=== PATIENT | male | born 1960 ===

== ENCOUNTER 2025-03-10 08:02 | Emergency (ER) | payer BC, SELFPAY ==
[2025-03-10 08:06] VITALS: BP 166/94
--- NOTE | 2025-03-10 08:19 | ED.GENMED ---
History of Present Illness
General
Chief Complaint: Musculo-Skeletal Complaint
Time Seen by Provider: 03/10/25 08:19
History of Present Illness
History of Present Illness:
FOCUSED PAST MEDICAL HISTORY
- Former smoker but otherwise no significant past medical history
REVIEW OF OLD RECORDS
- I reviewed records, the patient was seen here with left shoulder pain and at that time had normal troponin
Note:
CHIEF COMPLAINT(S)
Right knee pain with a sensation of snapping and inability to bear weight.
HISTORY OF PRESENT ILLNESS
The patient is a 64-year-old male who presents with right knee pain, initially experienced approximately two weeks following a hyperextension injury. The incident occurred when his knee became caught between a seat and a cooler while on a boat.
Initially, the patient reported feeling something 'hyper,' but it resolved without immediate concern. However, two weeks later, while sitting on a couch and attempting to pull the leg up, the patient experienced pain in the knee. Over time, the
symptoms worsened, with difficulty bending the knee, intermittent pain in different areas, and a twitching sensation if moved certain ways. The patient tried using a knee brace to alleviate symptoms. Recently, while carrying a box and descending a
ramp, the patient reported feeling a snap in the knee, leading him to drop the box and nearly fall.
The knee currently exhibits limited range of motion, with the patient experiencing difficulty applying pressure. There is a notable sensation of tightness along the quadriceps and patella tendon. The patient denies a history of prior knee injuries
or issues before this event but reports feeling occasional clicks over the past several days before the incident.
PHYSICAL EXAM
General: Alert, but appears uncomfortable only when he tries to move the right knee, appears comfortable at rest
Skin: Warm, dry.
Head: Normocephalic, atraumatic.
Neck: Supple, trachea midline.
Eye, Ears, Nose, Mouth, and Throat: Oral mucosa moist.
Cardiovascular: Normal peripheral perfusion, No edema.
Respiratory: Respirations are non-labored.
Gastrointestinal: Abdomen nondistended.
Back: Normal range of motion, Normal alignment.
Musculoskeletal: Only mildly limited active range of motion at the right knee into flexion; only minimal tenderness at the lateral aspect, quadriceps and patellar tendons are intact, negative drawer testing, positive Sj test, there is no soft
tissue prominence in the popliteal fossa to suggest a Chavarria's cyst, no calf swelling or tenderness to suggest DVT
Neurological: Alert and oriented to person, place, time, and situation. No focal neurological deficit observed.
Psychiatric: Cooperative, appropriate mood & affect.
PLAN
1. Obtain X-ray of the right knee to assess the bony anatomy and check for any arthritic changes.
2. Provide a knee immobilizer for strengthening support beyond a regular brace. Advise usage as needed and recommend removing several times a day.
3. Continue use of ibuprofen, three to four tablets every eight hours, if no gastrointestinal or bleeding issues present.
4. Recommend referral and follow-up with an point of care specialist, preferably contacting the patients neighbor or another available orthopedic physician for further evaluation.
DIFFERENTIAL DIAGNOSIS
The Differential Diagnosis includes, in no particular order and is not limited to:
1. Meniscal Injury
2. Anterior Cruciate Ligament (ACL) Sprain
3. Patellar Tendonitis
4. Osteoarthritis
5. Knee Effusion
6. Collateral Ligament Sprain
7. Patellofemoral Pain Syndrome
8. Synovitis
9. Bakers Cyst
10. Partial Quadriceps Tendon Rupture
RADIOLOGY
- X-ray obtained�moderate effusion noted, no bony injury
UPDATE
-SUMMARY OF ENCOUNTER
The patient, a 64-year-old male, presented to the emergency department with right knee pain and limited range of motion following an injury two weeks ago. The pain intensified after a recent incident of feeling a snap while descending a ramp. A
physical examination was performed, noting significant swelling and limitation in knee movement, but there was no evidence of instability upon drawer testing. An X-ray was conducted, revealing no fractures. It was discussed that a meniscal injury
might be the underlying cause, possibly requiring further evaluation by an point of care specialist, particularly an MRI, which cannot be performed through the emergency department.
DISPOSITION
Discharge.
PLAN
1. Provide a knee immobilizer to assist with pain relief and stability.
2. Advise continuation of ibuprofen as previously prescribed.
3. Encourage the patient to follow up with an point of care specialist for further evaluation and to facilitate an MRI if deemed necessary.
4. Provide contact information for Dr. Carmichael and Dr. Oscar for orthopedic consultation.
INDEPENDENT REVIEW OF LABS AND INTERPRETATION OF TESTS
My independent interpretation of the knee X-ray is that there are no fractures or bony abnormalities present.
PATIENT EDUCATION AND COUNSELING
Patient was informed about the potential for a meniscal injury and advised that while MRI is not performed in the emergency department, it may be necessary to confirm the diagnosis. It was explained that some knee injuries improve over time but
consultation with an point of care specialist is important for further evaluation and management. Instructions were provided regarding the use of a knee immobilizer and continuation of current NSAID therapy.
FOLLOW-UP INSTRUCTIONS
Please follow up with an point of care specialist, contacting Dr. Carmichael or Dr. Oscar for further evaluation and potential MRI. Ensure follow-up is scheduled promptly due to the current inability to bear weight on the right knee.
MEDICAL DECISION MAKING
-Complexity of Data Reviewed:
Chronic conditions affecting care: None mentioned.
Differential Diagnosis: Meniscal Injury, Anterior Cruciate Ligament (ACL) Sprain, Patellar Tendonitis, Osteoarthritis, Knee Effusion, Collateral Ligament Sprain, Patellofemoral Pain Syndrome, Synovitis, Bakers Cyst, Partial Quadriceps Tendon Rupture.
-Data:
Category 1
My independent interpretation of the knee X-ray indicates no fractures.
Category 3
Discussion of management with orthopedic specialists planned, providing contact information for Dr. Carmichael and Dr. Oscar.
-Risk:
Prescription medication was prescribed: Ibuprofen for pain management.
Consideration of Admission/Observation: Escalation of care including admission/observation was considered given the complexity and risk of the patients presenting complaint and exam findings. However, ultimately I feel the patient is safe for
outpatient management with close follow-up. Reasoning: Work-up reassuring, does not reveal any acute life-threatening processes, patients symptoms well-controlled upon reevaluation, reexamination is reassuring, vitals are stable, patient agreeable
with discharge, reliable for follow-up.
DIAGNOSIS
Possible meniscal tear, unspecified (M23.2).
Knee joint pain, right (M25.561).
Past History
Past History
ED Past Medical History: None
ED Past Surgical History: None
Social History
Tobacco: Former smoker
Alcohol: Occasional
Drug: None
Personal: Single
Living: with family
Employment: Employed
Phy Exam
Physical Exam
Physical Exam:
See HPI see HPI
Course
Orders/Labs/Results
Orders:
Orders
03/10/25 08:26
Knee Immobilizer Right-Treatme ONCE
Knee, Right 4 or More Views [CR Knee- Right 4 Or More View*] Urgent
Comment:
Reason For Exam: pain
03/10/25 09:03
Crutches-Treatment ONCE
Vital Signs
Initial and Last Documented VS:
Initial Vital Signs
Temp Pulse Resp BP Pulse Ox
36.2 C 69 16 166/94 98
03/10/25 08:06 03/10/25 08:06 03/10/25 08:06 03/10/25 08:06 03/10/25 08:06
Last Documented Vital Signs
Temp Pulse Resp BP Pulse Ox
36.2 C 69 16 166/94 98
03/10/25 08:06 03/10/25 08:06 03/10/25 08:06 03/10/25 08:06 03/10/25 08:20
*Pulse Oximetry
SaO2: 98
Oxygen Mode of Delivery: Room air
Patient hypoxic: no
*Critical Care Note
Total Time (30-74mins, 75-104mins- exclusive of procedures): Not Applicable
ED Attending Note
-
Portions of this chart may have been created with voice recognition software.� Occasional wrong word or��sound alike� substitutions may have occurred due to the inherent limitations of voice recognition software.
Discharge Plan
Departure
Patient Disposition: Home (Routine Discharge)
Date of Disposition: 03/10/25
Time of Disposition: 09:22
Patient with high blood pressure during this ER visit?: Yes
Discharge Problem:
Acute knee pain
Instructions: Knee Immobilizer (DC), Knee Pain (DC), BLOOD PRESSURE
Prescriptions:
No Action
No Current Medications
0
Referrals:
Kevin Oscar MD [Active, Orthopedics]
Dashawn Carmichael MD [Active, Orthopedics]
Activity Restrictions/Additional Instructions:
Dr. Carmichael ([facility]) is this is the on-call doctor for Mei today however I have also given you the contact information for Dr. Oscar ([facility]). You could try following up with one of them. I recommend 3-4
[id number] ibuprofen (Motrin) every 8 hours with food for a few days. Return here if worse.
Interventions
Interventions:
*Risk Screen - Suicide Last Done: 03/10/25 08:07
*General Assessment Last Done: 03/10/25 08:31
*Neglect/Abuse Screening Last Done: 03/10/25 08:07
*ED- Fall Risk Assessment Last Done: 03/10/25 08:31
*ED COVID-19 Vaccine History Last Done: 03/10/25 08:31
*ED Influenza Vaccine History Last Done: 03/10/25 08:31
ED-Musculoskeletal Assessment Last Done: 03/10/25 08:36
Discharge Date and Time
Print Language: JAPANESE
[2025-03-10 08:33] VITALS: BMI 34.2
[2025-03-10 09:37] VITALS: BP 115/79
== END 2025-03-10 09:39 | disposition home or self-care (01) ==
LOC: EMR 08:02
PROVIDERS: EMERGENCY PHYSICIAN Emergency Medicine
DX: M25.561 Pain in right knee (principal); X50.9XXA Other and unspecified overexertion or strenuous movements or postures, initial encounter; Z87.891 Personal history of nicotine dependence
CPT/HCPCS: 99283; 73564